=== PATIENT | female | born 1995 | race Hispanic/Latino ===

== ENCOUNTER 2017-11-07 22:08 | Inpatient (IN) | payer MEDICAID, OTHER ==
[2017-11-07] MEDS ORDERED: Sodium Chloride 0.9% 1,000 ML IV STA (22:33)
--- NOTE | 2017-11-07 22:40 | ED PDOC ---
Arrival/HPI - General Historian: Patient - History of Present Illness Time/Duration: > month Symptom Course: Worsening Quality: Other (weakness "like I'm going to fall") <Angie Berry - Last Filed: 11/08/17 00:09> <Frederick Roland DO - Last Filed: 11/08/17 04:21> - General Chief Complaint: Weakness/Neurological Deficit Time Seen by Provider: 11/07/17 22:16 - History of Present Illness Narrative History of Present Illness (Text): CC: Anxiety/weakness Patient [place] [facility] [place] and weakness. Patient states she feels like she's going to fall. Patient states she hasn't eaten well since going [place] [facility] [place] She felt that they didn't treat her well, and she came here for evaluation. Patient's girlfriend and girlfriend's mother were present during the questioning. Patient has been suffering from anxiety that is "crippling" for a long time and has not found a good way to deal with it. Patient states she hasn't eaten well for awhile. Patient's girlfriend's mother says she has to check in on her to make sure she eats at times, but this is the thinnest the patient has ever been. PMH: none PSH: none Social history: Patient moved [place] in August [place]. Allergies: NKDA (Angie Berry) Past Medical History - Psychiatric Hx Substance Use: No <Angie Berry - Last Filed: 11/08/17 00:09> - Provider Review Nursing Documentation Reviewed: Yes <Frederick Roland DO - Last Filed: 11/08/17 04:21> Family/Social History Smoking Status: Never Smoked Hx Alcohol Use: No Hx Substance Use: No <Anige Berry - Last Filed: 11/08/17 00:09> - Physician Review Nursing Documentation Reviewed: Yes Family/Social History: No Known Family HX <Frederick Roland DO - Last Filed: 11/08/17 04:21> Allergies/Home Meds <Angie Berry - Last Filed: 11/08/17 00:09> <Frederick Roland DO - Last Filed: 11/08/17 04:21> Allergies/Adverse Reactions: Allergies No Known Allergies Allergy (Verified 11/08/17 03:13) Home Medications: Home Meds Medication Instructions Recorded Confirmed No Known Home Med 11/07/17 11/08/17 Review of Systems - Review of Systems Constitutional: Fatigue Eyes: absent: Vision Changes, Photophobia, Eye Pain ENT: absent: Hearing Changes, Tinnitus, Rhinorrhea Respiratory: absent: SOB, Cough, Sputum, Wheezing Cardiovascular: absent: Chest Pain, Edema, Calf Pain, Syncope Gastrointestinal: absent: Abdominal Pain, Stool Changes, Constipation, Vomiting , Appetite Changes, Hematochezia, Food Intolerance Genitourinary Female: absent: Dysuria, Frequency, Hematuria, Vaginal Bleeding, Vaginal Discharge Musculoskeletal: absent: Arthralgias, Back Pain, Neck Pain Skin: absent: Rash, Pruritis, Skin Lesions Neurological: absent: Headache, Dizziness, Focal Weakness Endocrine: absent: Diaphoresis, Polyuria, Polydipsia Hemo/Lymphatic: absent: Adenopathy, Easy Bleeding, Easy Bruising Psychiatric: absent: Anxiety, Depression, Suicidal Ideation <KristiAngie - Last Filed: 11/08/17 00:09> Physical Exam Vital Signs Reviewed: Yes Temperature: Afebrile Blood Pressure: Normal Pulse: Regular Respiratory Rate: Normal Appearance: Positive for: Other (emaciated) Mental Status: Positive for: Alert and Oriented X 3 - Systems Exam Head: Present: Atraumatic, Normocephalic Pupils: Present: PERRL Extroacular Muscles: Present: EOMI Conjunctiva: Present: Normal. No: Injected, Icteric Mouth: Present: Dry Neck: Present: Normal Range of Motion, Trachea Midline. No: JVD, Lymphadenopathy Respiratory/Chest: Present: Clear to Auscultation, Good Air Exchange. No: Respiratory Distress Cardiovascular: Present: Regular Rate and Rhythm, Normal S1, S2. No: Murmurs Abdomen: No: Distention Upper Extremity: Present: Normal Inspection, Normal ROM, Capillary Refill < 2s Lower Extremity: Present: Normal Inspection, Normal ROM, Capillary Refill < 2 s Skin: Present: Warm, Dry, Pale Psychiatric: Present: Alert, Oriented x 3 <Angie Berry - Last Filed: 11/08/17 00:09> Vital Signs Reviewed: Yes <Frederick Roland DO - Last Filed: 11/08/17 04:21> Vital Signs Pulse Resp BP Pulse Ox 11/08/17 02:00 93 H 21 117/80 98 11/08/17 00:55 90 16 113/71 99 11/07/17 22:24 83 18 126/86 99 Medical Decision Making - Lab Interpretations Interpretation: No clinic. lab abnormalty <KristiAngie - Last Filed: 11/08/17 00:09> <Frederick Roland DO - Last Filed: 11/08/17 04:21> ED Course and Treatment: 11/07/17 23:57 cbc cmp tsh, t3, free t4 psych eval (Angie Berry) 11/08/17 00:19 22 year old female presents to the Emergency department for generalized weakness. In agreement with resident note, which includes further HPI details. Patient was seen and evaluated with resident, came up with plan and treatment together. (Frederick Roland DO) - Lab Interpretations Lab Results: 11/07/17 22:40 11/07/17 22:40 Lab Results 11/07/17 23:20: Urine Opiates Screen Negative, Urine Methadone Screen Negative, Ur Barbiturates Screen Negative, Ur Phencyclidine Scrn Negative, Ur Amphetamines Screen Negative, U Benzodiazepines Scrn Negative, U Oth Cocaine Metabols Negative, U Cannabinoids Screen Negative 11/07/17 23:20: Urine Color Yellow, Urine Appearance Clear, Urine pH 7.0, Ur Specific Maynard 1.020, Urine Protein Trace H, Urine Glucose (UA) Negative, Urine Ketones >=80, Urine Blood Trace-intact H, Urine Nitrate Negative, Urine Bilirubin Negative, Urine Urobilinogen 0.2, Ur Leukocyte Esterase Negative, Urine RBC 0 - 2, Urine WBC 0 - 2, Ur Epithelial Cells 1 - 3, Urine Bacteria Few , Urine Other Mucus 11/07/17 22:40: Free T4 1.58, Total T3 1.19, TSH 3rd Generation 2.69, Alcohol, Quantitative < 10 11/07/17 22:40: Sodium 140, Potassium 3.9, Chloride 104, Carbon Dioxide 22, Anion Gap 18, BUN 17, Creatinine 0.8, Est GFR ( Amer) > 60, Est GFR (Non- Af Amer) > 60, Random Glucose 94, Calcium 10.2, Total Bilirubin 0.9, AST 31, ALT 37, Alkaline Phosphatase 72, Total Protein 8.6 H, Albumin 5.0 H, Globulin 3.6, Albumin/Globulin Ratio 1.4, Amylase 46, Lipase 123 11/07/17 22:40: WBC 8.6, RBC 4.14, Hgb 12.6, Hct 37.4, MCV 90.3, MCH 30.4, MCHC 33.7, RDW 13.2, Plt Count 255, MPV 11.3 H, Gran % 52.0, Lymph % (Auto) 41.9 H, [place] % (Auto) 5.5, Eos % (Auto) 0.4 L, Baso % (Auto) 0.2, Gran # 4.45, Lymph # 3.6 H, [place] # 0.5, Eos # 0.0, Baso # 0.02 11/07/17 22:18: POC Glucose (mg/dL) 70 - Medication Orders Current Medication Orders: Acetaminophen (Tylenol 325mg Tab) 650 mg PO Q4H PRN PRN Reason: Pain, Mild (1-3) Al Hydrox/Mg Hydrox/Simethicone (Maalox Plus 30 Ml) 30 ml PO DAILY PRN PRN Reason: Upset Stomach Magnesium Hydroxide (Milk Of Magnesia) 30 ml PO DAILY PRN PRN Reason: Constipation Discontinued Medications Sodium Chloride (Sodium Chloride 0.9%) 1,000 mls @ 1,000 mls/hr IV .Q1H STA Stop: 11/07/17 23:32 Last Admin: 11/08/17 01:45 Dose: Not Given Non-Admin Reason: Patient Refused <Angie Berry - Last Filed: 11/08/17 00:09> - PA / WOOL SHEARING SUPERVISOR / Resident Statement [place]O has reviewed & agrees with the documentation as recorded. [place]O has examined the patient and agrees with the treatment plan. - Scribe Statement The provider has reviewed the documentation as recorded by the Scribe <Frederick Roland DO - Last Filed: 11/08/17 04:21> - Scribe Statement Nery Geller. All medical record entries made by the Scribe were at my direction and personally dictated by me. I have reviewed the chart and agree that the record accurately reflects my personal performance of the history, physical exam, medical decision making, and the department course for this patient. I have also personally directed, reviewed, and agree with the discharge instructions and disposition. (Frederick Roland DO) Disposition/Present on Arrival - Present on Arrival Any Indicators Present on Arrival: No History of DVT/PE: No History of Uncontrolled Diabetes: No Urinary Catheter: No History of Decub. Ulcer: No History Surgical Site Infection Following: None <Angie Berry - Last Filed: 11/08/17 00:09> - Disposition Have Diagnosis and Disposition been Completed?: Yes Disposition Time: 00:50 <Frederick Roland DO - Last Filed: 11/08/17 04:21> - Disposition Diagnosis: MDD (major depressive disorder) Disposition: HOSPITALIZED Condition: STABLE
[2017-11-07 23:03] LABS: BASO # 0.02 K/mm3 (0.0-2.0); BASO % 0.2 % (0.0-3.0); EOS % 0.4 % (1.5-5.0); GRAN # 4.45 (1.4-6.5); HEMOGLOBIN 12.6 g/dL (12.0-16.0); LYMPH # 3.6 (1.2-3.4); LYMPH % 41.9 % (22.0-35.0); MEAN CELL VOLUME 90.3 fl (80.0-105.0); MEAN CORPUSCULAR HEMOGLOBIN 30.4 pg (25.0-35.0); MEAN CORPUSCULAR HGB CONC 33.7 g/dl (31.0-37.0); MEAN PLATELET VOLUME 11.3 fl (7.0-11.0); MONO # 0.5 (0.1-0.6); MONO % 5.5 % (1.0-6.0); RBC 4.14 10^6/uL (3.5-6.1); RED CELL DISTRIBUTION WIDTH 13.2 % (11.5-14.5); WHITE BLOOD COUNT 8.6 10^3/ul (4.5-11.0)
[2017-11-07 23:13] LABS: ALT/SGPT 37 U/L (7-56); AMYLASE 46 U/L (35-125); AST/SGOT 31 U/L (14-36); BLOOD UREA NITROGEN 17 mg/dL (7-21); CALCIUM 10.2 mg/dL (8.4-10.5); GFR AFRICAN-AMERICAN > 60; GFR NON-AFRICAN AMERICAN > 60; LIPASE 123 U/L (23-300)
[2017-11-07 23:29] LABS: FREE T4 1.58 ng/dL (0.78-2.19)
[2017-11-07 23:33] LABS: ALB/GLOB RATIO 1.4 (1.1-1.8)
[2017-11-07 23:43] LABS: T3 1.19 ng/mL (0.97-1.69)
[2017-11-07 23:53] LABS: URINE BILIRUBIN NEGATIVE (NEGATIVE); URINE BLOOD TRACE-INTACT (NEGATIVE); URINE GLUCOSE (UA) NEGATIVE (NEGATIVE); URINE LEUKOCYTE ESTERASE NEGATIVE Leu/uL (NEGATIVE); URINE NITRATE NEGATIVE (NEGATIVE); URINE PROTEIN TRACE mg/dL (<30 mg/dL); URINE UROBILINOGEN 0.2 E.U./dL (<1 E.U./dL)
[2017-11-07 23:54] LABS: URINE APPEARANCE CLEAR (CLEAR); URINE COLOR YELLOW (YELLOW)
[2017-11-08] LABS: URINE RBC 0 - 2 /hpf (0-2)
[2017-11-08 00:01] LABS: URINE BACTERIA FEW (NEG); URINE WBC 0 - 2 /hpf (0-6)
[2017-11-08 00:15] LABS: BARBITURATES, UR NEGATIVE (NEGATIVE); BENZODIAZEPINES, UR NEGATIVE (NEGATIVE); OPIATES, UR NEGATIVE (NEGATIVE); PHENCYCLIDINE, UR NEGATIVE (NEGATIVE)
[2017-11-08 02:02] VITALS: O2SAT 98
[2017-11-08 03:14] VITALS: BMI 15.6
[2017-11-08] MEDS ORDERED: Magnesium Hydroxide Susp 30 ml UD PO PRN (03:17)
[2017-11-08] MEDS ORDERED: Alum-Mag Hydrox-Simethicone Susp (30 mL) PO PRN (03:17)
--- NOTE | 2017-11-08 04:44 | PCM.BM ---
<Ysabel Mroan - Last Filed: 11/08/17 04:46> Treatment Plan Problems - Problems identified on initial assessmt GENERALIZED ANXIETY Date Initiated: 11/08/17 Time Initiated: 04:00 Assessment reference: NA Status: Active ANOREXIA NERVOSA Date Initiated: 11/08/17 Assessment reference: NA Status: Active DEPRESSION Date Initiated: 11/08/17 Time Initiated: 04:00 Assessment reference: NA Status: Active Treatment assets and liabiliti Patient Assests: adapts well, cooperative, educated, self-reliant, good support system, negotiates basic needs, cognitively intact Patient Liabilities: financial problems, relationship conflicts (VERY POOR APPETITE) - Milieu Protocol Maintain good personal hygiene: every other day Encourage regular showers, every shift Remind patient to perform daily oral care, every shift Assist patient to perform ADL's Maintain personal safety: every shift Educate patient to report safety concerns to staff, every shift Monitor environment for contraband/sharps Medication safety: Monitor for expected outcome, potential side effects: every shift, Assess barriers to learning: every shift, Assess readiness for medication education: every shift Family Contact Family contact: Patient agrees to contact, Other (HER GF..NAME AND ADD IN FACESHEET.. ) Discharge/Continuing Care - Education Needs Education Needs: Patient Medication, Patient Diagnosis/Disease Process, Patient Coping Skills, Patient Community resources, Patient Nutrition, Patient Health Practices/Safety, Patient Aftercare Safety Plan - Discharge Discharge Criteria: Tolerates medication w/o severe side effects, Free of Suicidal thoughts, Free of agitation, Normal sleep pattern, Ability to care for self <Sanam Ordaz A - Last Filed: 11/08/17 16:08> - Diagnosis (1) Panic disorder with agoraphobia Status: Acute Interventions: 11/08/17 16:08 Psychoeducation Psychopharmacology/adjustment of medications as needed/ monitoring possible side effects Evaluate pt on daily basis Discussion of importance of being compliant with medications and follow up appointments Suicide and homicide risk assessment and prevention, coping strategies, safety plan Reduction of symptoms Relaxation techniques and breathing exercises Improve functional status Family involvement Cognitive behavioral therapy as outpatient (2) MDD (major depressive disorder) Status: Acute Interventions: 11/08/17 16:09 Psychoeducation Psychopharmacology/adjustment of medications as needed/ monitoring possible side effects Evaluate pt on daily basis Compliance with medications and follow up appointments Suicide and homicide risk assessment and prevention Relapse prevention Reduction of symptoms Improve functional status Family involvement As outpatient: cognitive behavioral therapy <Sarah Lee - Last Filed: 11/08/17 17:25> Family Contact Family contact name: Farzaneh(significant other) Family contacted how many times per week?: 2
[2017-11-08 08:40] LABS: GLUCOSE,FASTING 100 mg/dL (65-110); HDL CHOLESTEROL 64 mg/dL (29-60)
[2017-11-08 08:50] LABS: LDL CHOLESTEROL 113 mg/dL (0-129)
--- NOTE | 2017-11-08 14:58 | CP.PCM.CON ---
<Kaushik Ruiz - Last Filed: 11/08/17 20:16> History of Present Illness - History of Present Illness History of Present Illness: Kaushik Ruiz PGY1 IM Consult Note Ms. Napoles is a 22 year old female with no medical history with a history of anxiety who presented to ED with anxiety and admitted to psych unit for it. Patient states that she recently moved from [place] and does not have a PMD in [place] and is not currently working here. She states that she would go to the ED if she felt anything abnormal about her that needed medical attention. Denies avoiding any certain types of food, throwing up food, or having any negative views of her body. Patient denies any eating abnormalities, weakness, fainting episodes, hematuria, changes in bowel or urinary habits, chest pain or shortness of breath; she has no medical complaints. 12-ROS was reviewed and is otherwise unremarkable. PMH: none PSH: none Meds: none Allergies: NKDA SHx: denies tobacco, ETOH or drug use stating that her parents are drug users and she avoids drugs because she has seen the consequences; lives with friend in ; not currently working Review of Systems - Review of Systems All systems: reviewed and no additional remarkable complaints except (as per HPI ) Past Patient History - Past Medical History & Family History Past Medical History?: No Past Family History: Reviewed and not pertinent - Past Social History Smoking Status: Never Smoked Alcohol: None Drugs: Denies Home Situation {Lives}: Friends - CARDIAC Hx Cardiac Disorders: No Hx Hypertension: No - PULMONARY Hx Respiratory Disorders: No Hx Tuberculosis: No - NEUROLOGICAL Hx Neurological Disorder: No HX Cerebrovascular Accident: No Hx Seizures: No - HEENT Hx HEENT Problems: No - RENAL Hx Chronic Kidney Disease: No - ENDOCRINE/METABOLIC Hx Endocrine Disorders: No - HEMATOLOGICAL/ONCOLOGICAL Hx Blood Disorders: No Hx Cancer: No Hx Human Immunodeficiency Virus (HIV): No - INTEGUMENTARY Hx Dermatological Problems: No - MUSCULOSKELETAL/RHEUMATOLOGICAL Hx Musculoskeletal Disorders: No - GASTROINTESTINAL Hx Gastrointestinal Disorders: No - GENITOURINARY/GYNECOLOGICAL Hx Genitourinary Disorders: No Hx Sexually Transmitted Disorders: No - PSYCHIATRIC Hx Anxiety: Yes Hx Physical Abuse: No Hx Sexual Abuse: No Hx Substance Use: No - SURGICAL HISTORY Hx Surgeries: No - ANESTHESIA Hx Anesthesia: No Meds Allergies/Adverse Reactions: Allergies Allergy/AdvReac Type Severity Reaction Status Date / Time No Known Allergies Allergy Verified 11/08/17 03:13 - Medications Medications: Current Medications Acetaminophen (Tylenol 325mg Tab) 650 mg PO Q4H PRN PRN Reason: Pain, Mild (1-3) Al Hydrox/Mg Hydrox/Simethicone (Maalox Plus 30 Ml) 30 ml PO DAILY PRN PRN Reason: Upset Stomach Magnesium Hydroxide (Milk Of Magnesia) 30 ml PO DAILY PRN PRN Reason: Constipation Physical Exam - Constitutional Appears: Well, Non-toxic, No Acute Distress Additional comments: thin appearing female - Head Exam Head Exam: ATRAUMATIC, NORMAL INSPECTION - Eye Exam Eye Exam: EOMI, Normal appearance - ENT Exam ENT Exam: Mucous Membranes Moist - Neck Exam Neck exam: Positive for: Normal Inspection - Respiratory Exam Respiratory Exam: Clear to Auscultation Bilateral, NORMAL BREATHING PATTERN. absent: Rales, Rhonchi, Wheezes - Cardiovascular Exam Cardiovascular Exam: RRR, +S1, +S2 - GI/Abdominal Exam GI & Abdominal Exam: Normal Bowel Sounds, Soft. absent: Distended, Tenderness - Extremities Exam Extremities exam: Positive for: full ROM, normal inspection. Negative for: pedal edema Additional comments: multiple tattoos noted on arms - Back Exam Back exam: NORMAL INSPECTION - Neurological Exam Neurological exam: Alert, CN II-XII Intact, Normal Gait, Oriented x3, Reflexes Normal - Psychiatric Exam Psychiatric exam: Anxious, Normal Affect - Skin Skin Exam: Normal Color, Warm Results - Vital Signs Recent Vital Signs: Last Vital Signs Temp 98.6 F 11/08/17 07:00 Pulse 88 11/08/17 07:00 Resp 20 11/08/17 07:00 BP 99/62 L 11/08/17 07:00 Pulse Ox 98 11/08/17 02:00 - Labs Result Diagrams: 11/07/17 22:40 11/07/17 22:40 Labs: Laboratory Results - last 24 hr 11/08/17 11/08/17 08:00 08:00 Fasting Glucose 100 Triglycerides 122 Cholesterol 200 LDL Cholesterol Direct 113 HDL Cholesterol 64 H TSH 3rd Generation 4.22 Assessment & Plan - Assessment and Plan (Free Text) Assessment: 22 year old thin female with no medical history with a psych history of anxiety who presented to ED with anxiety and admitted to psych unit for it. Medical team was consulted for medical clearance. Patient appears anxious but vital signs are all stable, and labs are within normal limits. Patient appears thin, however, BMI is within normal range with no recent weight changes, and patient is not anemic and with normal EKG. Thyroid studies are normal. UDS was negative. Patient states that she is going to go home today and psych unit staff confirmed. Plan: 1. Anxiety - management as per primary psych team 2. Thin body habitus - labs and VS all wnl - encourage complete diet and avoiding stressors - no anemia noted - no metabolite abnormalities noted Patient is medically stable. Will sign off. Patient was seen, examined and discussed with attending, Dr. Amor Ruiz PGY1 Pager # [phone] <Jimbo Chinchilla - Last Filed: 11/09/17 14:27> Meds - Medications Medications: Current Medications Acetaminophen (Tylenol 325mg Tab) 650 mg PO Q4H PRN PRN Reason: Pain, Mild (1-3) Al Hydrox/Mg Hydrox/Simethicone (Maalox Plus 30 Ml) 30 ml PO DAILY PRN PRN Reason: Upset Stomach Alprazolam (Xanax) 0.25 mg PO TID PRN; Protocol PRN Reason: Anxiety Stop: 11/15/17 18:01 Last Admin: 11/09/17 08:25 Dose: 0.25 mg Magnesium Hydroxide (Milk Of Magnesia) 30 ml PO DAILY PRN PRN Reason: Constipation Paroxetine HCl (Paxil) 5 mg PO HS YASH Last Admin: 11/08/17 21:24 Dose: 5 mg Zaleplon (Sonata) 5 mg PO HS PRN PRN Reason: Insomnia Results - Vital Signs Recent Vital Signs: Last Vital Signs Temp 97.2 F L 11/09/17 07:01 Pulse 20 L 11/09/17 07:01 Resp 95 H 11/09/17 07:01 BP 106/70 11/09/17 07:01 Pulse Ox 98 11/08/17 02:00 - Labs Result Diagrams: 11/07/17 22:40 11/07/17 22:40 Labs: Laboratory Results - last 24 hr 11/08/17 08:15 RPR Nonreactive Attending/Attestation - Attestation I have personally seen and examined this patient.: Yes I have fully participated in the care of the patient.: Yes I have reviewed all pertinent clinical information: Yes Notes (Text): 11/09/17 14:25 attending note; Patient seen and examined with resident. Patient is a 22-year-old female admitted to psychiatric floor for extreme anxiety. Currently patient denies any medical issues. Patient is thin looking. Denies any history of anorexia or bulimia. Denies any nausea, vomiting. Tolerating diet well. Labs reviewed. Patient is medically stable. Please reconsult as needed. Thank you for the courtesy of this consultation.
--- NOTE | 2017-11-08 16:52 | PCM.PSYCH ---
Initial Psychiatric Evaluation - Initial Psychiatric Evaluation Type of Admission: Voluntary Legal Status: Capacity (patient has capacity to sign consent for treatment) Chief Complaint (in patient's own words): "this unit makes me feel very anxious" Patient's Reaction to Hospitalization: patient was admitted for evaluation and stabilization of uncontrolled anxiety, patient lost a lot of weight, currently weight 91 pounds, rule out major depressive disorder. History of Present Illness and Precipitating Events: shortly patient is 22 year old female, not known previous psychiatric history, patient denied history of being admitted to the psychiatric inpatient unit or history of suicidal attempts, patient moved from [place] to [place] in August 2017 due to family problems, currently lives with her girlfriend and her mother in [place], patient was brought in for evaluation of uncontrollable anxiety, fear that something wrong with her from the medical standpoint, based on the report patient was not able to function, didn't leave the house for past 3 weeks, was not able to eat for past 3 days, patient lost more than 9 pounds recently, patient required further evaluation and stabilization, medication management, observation. Patient was not able to see psychiatrist in the community, patient's girlfriend and her family were very concerned about patient's safety. Patient was seen today at the treatment team meeting, patient presented with good personal hygiene, very beautiful face, good ADLs. Patient obviously looking malnourished/anorexic patient weight is 92 pounds, patient has anxious appearance but wanted to present better than she actually is. during the interview pt was minimizing all of her symptoms, pt was saying that she does not belong here, pt was giving excused why she came to the hospital. pt said that she feels "relieved after I've got to know that I am okay from medical standpoint", pt said "this unit makes me feel very anxious, I don't want to stay in here, I want to leave". pt said that she was staying in bed because "I had a flue", pt also reported that she was not able to eat because of that, as a result "everything got worse , I did not want to leave the house and feeling very anxious". pt described her panic attacks as a fear that something bad is going to happen to her, pt also reported that at times she could feel that she is chocking. pt reported that she is not depressed, denied thought of harming self or others , denied intent or plan. pt denied v/a/t hallucinations, denied paranoid ideation, but pt was guarded, smiling anxiously. pt denied that she has h/o eating disorder, denied that she restrict food consumption, denied h/o binge eating or purging, pt reported to have an appetite , wants to increase weight. denied any body image issues. denied exercising excessively to lose weight. pt reported that she ate today, but as per staff pt had only two spoon of food. BMI is 15.6. pt denied smoking, denied using drugs, denied alcohol consumption. Medical h/o: denied, but past psychiatric h/o: pt had some counseling at school, but denied Previous psychiatric admissions, denied suicidal attempts in the past. Family history of: Patient denied any family history of mental illness, denied family history of suicidal attempts. 11/07/17 22:40 11/07/17 22:40 Lab Results 11/08/17 08:00: TSH 3rd Generation 4.22 11/08/17 08:00: Fasting Glucose 100, Triglycerides 122, Cholesterol 200, LDL Cholesterol Direct 113, HDL Cholesterol 64 H 11/07/17 23:20: Urine Opiates Screen Negative, Urine Methadone Screen Negative, Ur Barbiturates Screen Negative, Ur Phencyclidine Scrn Negative, Ur Amphetamines Screen Negative, U Benzodiazepines Scrn Negative, U Oth Cocaine Metabols Negative, U Cannabinoids Screen Negative 11/07/17 23:20: Urine Color Yellow, Urine Appearance Clear, Urine pH 7.0, Ur Specific [place] 1.020, Urine Protein Trace H, Urine Glucose (UA) Negative, Urine Ketones >=80, Urine Blood Trace-intact H, Urine Nitrate Negative, Urine Bilirubin Negative, Urine Urobilinogen 0.2, Ur Leukocyte Esterase Negative, Urine RBC 0 - 2, Urine WBC 0 - 2, Ur Epithelial Cells 1 - 3, Urine Bacteria Few , Urine Other Mucus 11/07/17 22:40: Free T4 1.58, Total T3 1.19, TSH 3rd Generation 2.69, Alcohol, Quantitative < 10 11/07/17 22:40: Sodium 140, Potassium 3.9, Chloride 104, Carbon Dioxide 22, Anion Gap 18, BUN 17, Creatinine 0.8, Est GFR ( Amer) > 60, Est GFR (Non- Af Amer) > 60, Random Glucose 94, Calcium 10.2, Total Bilirubin 0.9, AST 31, ALT 37, Alkaline Phosphatase 72, Total Protein 8.6 H, Albumin 5.0 H, Globulin 3.6, Albumin/Globulin Ratio 1.4, Amylase 46, Lipase 123 11/07/17 22:40: WBC 8.6, RBC 4.14, Hgb 12.6, Hct 37.4, MCV 90.3, MCH 30.4, MCHC 33.7, RDW 13.2, Plt Count 255, MPV 11.3 H, Gran % 52.0, Lymph % (Auto) 41.9 H, [place] % (Auto) 5.5, Eos % (Auto) 0.4 L, Baso % (Auto) 0.2, Gran # 4.45, Lymph # 3.6 H, [place] # 0.5, Eos # 0.0, Baso # 0.02 11/07/17 22:18: POC Glucose (mg/dL) 70 Vital Signs Temp Pulse Resp BP Pulse Ox 11/08/17 07:00 98.6 F 88 20 99/62 L 11/08/17 03:22 97.6 F 98 H 20 109/71 11/08/17 02:00 93 H 21 117/80 98 11/08/17 00:55 90 16 113/71 99 11/07/17 22:24 83 18 126/86 99 during the treatment team meeting, patient requested to be discharged, patient did not want to stay in the hospital, patient denied that she wanted to kill herself or others, this remote mortgage underwriter educated patient about benefits of staying in the hospital and complete treatment but patient declined that offer. Later on when patient was signing papers for [employer] and patient' s family was outside patient complained "I'm going to pass out, I feel very anxious". Patient was advised to stay in the hospital, complete the treatment stat dose of Xanax was given. after talking to her family, patient changed her mind, decided to stay in the hospital in order to complete her treatment. Current Medications: Active Medications Generic Name Dose Route Start Last Admin Trade Name Freq PRN Reason Stop Dose Admin Acetaminophen 650 mg 11/08/17 03:17 Tylenol 325mg Tab PO Q4H PRN Pain, Mild (1-3) Al Hydrox/Mg Hydrox/Simethicone 30 ml 11/08/17 03:17 Maalox Plus 30 Ml PO DAILY PRN Upset Stomach Magnesium Hydroxide 30 ml 11/08/17 03:17 Milk Of Magnesia PO DAILY PRN Constipation Past Psychiatric History - Past Psychiatric History Previous Treatment History: None Prior Professional Help: see HPI Prior Psychiatric Treatment: see HPI At what hospital: see HPI Duration: see HPI Nature of Treatment: see HPI Explanation of prior treatment: see HPI History of Abuse: pt denied any abuse History of ETOH/Drug Use: see HPI History of Family Illness: see HPI Pertinent Medical Hx (Current Medical&Sleep Prob, Allergies): Allergies Allergy/AdvReac Type Severity Reaction Status Date / Time No Known Allergies Allergy Verified 11/08/17 03:13 No Known Home Med 11/07/17 Review of Systems - Review of Systems Systems not reviewed;Unavailable: Acuity of Condition - EENT Eyes: As Per HPI Ears: As Per HPI Nose/Mouth/Throat: As Per HPI - Breasts Breasts: As Per HPI - Cardiovascular Cardiovascular: As Per HPI - Respiratory Respiratory: As Per HPI - Gastrointestinal Gastrointestinal: As Per HPI - Genitourinary Genitourinary: As Per HPI - Reproductive: Female Reproductive:Female: As Per HPI - Menstruation Menstruation: As Per HPI - Musculoskeletal Musculoskeletal: As Par HPI - Integumentary Integumentary: As Per HPI - Neurological Neurological: As Per HPI - Psychiatric Psychiatric: As Per HPI - Endocrine Endocrine: As Per HPI - Hematologic/Lymphatic Hematologic: As Per HPI Mental Status Examination - Personal Presentation Personal Presentation: Looks stated age - Affect Affect: Constricted (pt was trying to smile, but appears to be depressed) - Motor Activity Motor Activity: Calm - Reliability in Providing Information Reliability in Providing Information: Fair - Speech Speech: Organized - Mood Mood: Other ("I am fine") - Formal Thought Process Formal Thought Process: No Impairment, Paranoia (but paranoia cannot be excluded ) - Obsessions/Compulsions Obsessions: None Compulsions: None - Cognitive Functions Orientation: Person, Place, Situation, Time Sensorium: Alert Attention/Concentration: Easily distracted Abstract Thinking: As evidence by abstract perception of proverbs Estimate of Intelligence: Average Judgement: Intact, as evidence by: Insight regarding need for hospitalization - Risk Risk: Diminished functioning - Strength & Assets Inventory Strength & Assets Inventory: Intelligence, Family support, Cooperative - Limitations Limitations: Other (pt was not functioning well) DSM 5 DX - DSM 5 DSM 5 Diagnosis: considering the fact pt's BMI is 15.6 this remote mortgage underwriter would thing it is either eating disorder/anorexia or psychotic spectrum disorder (fear of being poisoned) , or MDD with loss of appetite - Recommended/Plan of Treatment Treatment Recommendations and Plan of Treatment: Milieu/structure/supportive therapy Medical consult appreciated, see medical team note for more detailed info SW consultation for discharge plan and social issues dietary consult xanax 0.25mg po tid prn for anxiety paxil 5mg po hs for mdd and anxiety sonata 5mg po hs for insomnia Family involvement Follow up on labs Will monitor closely Pt was educated about risk/benefits and alternatives of medications, coping strategies (safety plan, suicide prevention), relapse prevention, importance of follow up with psychiatrist and therapist, stay away from drugs/alcohol/smoking Projected ELOS: 7days Prognosis: guarded Discharge Plan and Discharge Criteria: Pt will be not depressed or manic, will be more hopeful, will be not psychotic or anxious, will be not having thoughts of harming self or others, will be tolerating medications well, will not have major side effects, will be able to function, will not pose threat to self or others. - Smoking Cessation Smoking Cessation Initiated: No Reason for not providing: pt denied smoking
--- NOTE | 2017-11-09 09:15 | PCM.PYCHPN ---
Psychiatric Progress Note - Psychiatric Progress Note Patient seen today, length of contact: 25 MIN Patient Chief Complaint: "depressed and anxious" Problems Identified/Issues Discussed: I reviewed assessment and recent notes. I met with patient at bedside. She is groomed and well-oriented to month, year, location and circumstances. Reports that she is feeling better and that she slept very well. She admits to symptoms of depression and anxiety however denies any suicidal thoughts. Wants to get better and has been compliant with her medications. Continues to deny any symptoms of an eating disorder despite low BMI, she states "I love food" and wants her nutritional status to be good. We review her medications, dosing, indications and possible side effects today. Staff notes indicate that patient has periods of anxiety on the unit. Attended group and was calm overnight. She has been compliant with medications but needs encouragement. Diagnostic Results: considering the fact pt's BMI is 15.6 this investment underwriter would thing it is either eating disorder/anorexia or psychotic spectrum disorder (fear of being poisoned) , or MDD with loss of appetite Mental Status Examination - Cognitive Function Orientation: Person, Place, Situation, Time Attention: WNL Concentration: WNL Association: WN Fund of Knowledge: [facility] - Mood Mood: Depressed, Anxious, Other ("I am fine") - Affect Affect: Constricted (pt was trying to smile, but appears to be depressed) - Speech Speech: Appropriate - Formal Thought Process Formal Thought Process: No Impairment, Paranoia (but paranoia cannot be excluded ) - Suicidal Ideation Suicidal Ideation: No - Homicidal Ideation Homicidal Ideation: No Goal/Treatment Plan - Goal/Treatment Plan Progress Toward Problem(s) and Goals/Treatment Plan: * c/w current tx and plan * No new weekend labs thus far * Vitals reviewed and noted below: 11/08/17 11/08/17 07:00 16:00 Temperature 98.6 F Pulse Rate 88 115 H Respiratory 20 Rate Blood Pressure 99/62 L 128/90
--- NOTE | 2017-11-09 16:12 | CARD ---
APPROVED REPORT EKG Measurement Heart [id number] <Conclusion> Normal sinus rhythm Septal infarct, age undetermined Abnormal ECG
[2017-11-10 07:47] VITALS: BP 105/66; PULSE 105; RESP 20; TEMP 98.7
--- NOTE | 2017-11-10 09:28 | PCM.PYCHPN ---
Psychiatric Progress Note - Psychiatric Progress Note Patient seen today, length of contact: 25 MIN Patient Chief Complaint: "better" Problems Identified/Issues Discussed: I reviewed recent notes and met with patient at bedside. She is groomed and well-oriented to month, year, location and circumstances. Reports that she is feeling better and that she slept very well. She admits to symptoms of depression and anxiety however denies any suicidal thoughts. She wants to get better and has been compliant with her medications. Denies side effects from Paxil though noted some dizziness, flushing and tingling this morning. Unclear if this is from Paxil. Patient doesn't appear to be in any distress. Staff notes indicate that patient has periods of anxiety on the unit. She has been compliant with medications however she still needs encouragement and reassurances. Attended groups and there were no behavioral issues over the weekend. Patient indicates preference to be discharged soon.. Diagnostic Results: considering the fact pt's BMI is 15.6 this securities underwriter would thing it is either eating disorder/anorexia or psychotic spectrum disorder (fear of being poisoned) , or MDD with loss of appetite Mental Status Examination - Cognitive Function Orientation: Person, Place, Situation, Time Attention: WNL Concentration: WNL Association: WNL Fund of Knowledge: WNL - Mood Mood: Depressed, Anxious, Other (better) - Affect Affect: Constricted (pt was trying to smile, but appears to be depressed) - Speech Speech: Appropriate - Formal Thought Process Formal Thought Process: No Impairment - Suicidal Ideation Suicidal Ideation: No - Homicidal Ideation Homicidal Ideation: No Goal/Treatment Plan - Goal/Treatment Plan Progress Toward Problem(s) and Goals/Treatment Plan: * c/w current tx and plan * No new weekend labs thus far * Vitals reviewed and noted below: 11/10/17 07:46 Temperature 98.7 F Pulse Rate 105 H Respiratory 20 Rate Blood Pressure 105/66
--- NOTE | 2017-11-12 09:49 | PCM.PYCHDC ---
Mental Status Examination - Mental Status Examination Orientation: Person, Place, Situation, Time Memory: Intact Mood: Neutral Affect: Constricted (but reactive) Attention: WNL Concentration: WNL Association: WNL Fund of Knowledge: WNL Formal Thought Process: No Impairment Description of patient's judgement and insight: Pt has improved insight into mental and medical illness, pt was compliant with medications and unit rules and regulations, pt was going to groups, was calm, cooperative, socially appropriate, no behavioral incidents, no agitation, no aggression. Psychotic Thoughts and Behaviors: Pt denied v/a/t hallucinations, denied paranoid ideations, pt does not appear to be psychotic, and thought process is goal directed. Suicidal Ideation: No Current Homicidal Ideation?: No Plan: pt adamantly denied thoughts of harming self or others denied intent or plan. Discharge Summary - Discharge Note Reason for Hospitalization: patient was admitted for evaluation and stabilization of uncontrolled anxiety, patient lost a lot of weight, at the time of admission pt's weight was 91 pounds , r/o MDD, r/o eating disorder. Psychiatric History (includes Medical, Family, Personal Hx): see HPI Laboratory Data: 11/07/17 22:40 11/07/17 22:40 Lab Results 11/08/17 08:15: RPR Nonreactive 11/08/17 08:00: TSH 3rd Generation 4.22 11/08/17 08:00: Fasting Glucose 100, Triglycerides 122, Cholesterol 200, LDL Cholesterol Direct 113, HDL Cholesterol 64 H 11/07/17 23:20: Urine Opiates Screen Negative, Urine Methadone Screen Negative, Ur Barbiturates Screen Negative, Ur Phencyclidine Scrn Negative, Ur Amphetamines Screen Negative, U Benzodiazepines Scrn Negative, U Oth Cocaine Metabols Negative, U Cannabinoids Screen Negative 11/07/17 23:20: Urine Color Yellow, Urine Appearance Clear, Urine pH 7.0, Ur Specific [place] 1.020, Urine Protein Trace H, Urine Glucose (UA) Negative, Urine Ketones >=80, Urine Blood Trace-intact H, Urine Nitrate Negative, Urine Bilirubin Negative, Urine Urobilinogen 0.2, Ur Leukocyte Esterase Negative, Urine RBC 0 - 2, Urine WBC 0 - 2, Ur Epithelial Cells 1 - 3, Urine Bacteria Few , Urine Other Mucus 11/07/17 22:40: Free T4 1.58, Total T3 1.19, TSH 3rd Generation 2.69, Alcohol, Quantitative < 10 11/07/17 22:40: Sodium 140, Potassium 3.9, Chloride 104, Carbon Dioxide 22, Anion Gap 18, BUN 17, Creatinine 0.8, Est GFR ( Amer) > 60, Est GFR (Non- Af Amer) > 60, Random Glucose 94, Calcium 10.2, Total Bilirubin 0.9, AST 31, ALT 37, Alkaline Phosphatase 72, Total Protein 8.6 H, Albumin 5.0 H, Globulin 3.6, Albumin/Globulin Ratio 1.4, Amylase 46, Lipase 123 11/07/17 22:40: WBC 8.6, RBC 4.14, Hgb 12.6, Hct 37.4, MCV 90.3, MCH 30.4, MCHC 33.7, RDW 13.2, Plt Count 255, MPV 11.3 H, Gran % 52.0, Lymph % (Auto) 41.9 H, [place] % (Auto) 5.5, Eos % (Auto) 0.4 L, Baso % (Auto) 0.2, Gran # 4.45, Lymph # 3.6 H, [place] # 0.5, Eos # 0.0, Baso # 0.02 11/07/17 22:18: POC Glucose (mg/dL) 70 Vital Signs Temp Pulse Resp BP Pulse Ox 11/10/17 07:46 98.7 F 105 H 20 105/66 11/09/17 15:00 120/83 11/09/17 07:01 97.2 F L 20 L 95 H 106/70 11/08/17 16:00 115 H 128/90 11/08/17 07:00 98.6 F 88 20 99/62 L 11/08/17 03:22 97.6 F 98 H 20 109/71 11/08/17 02:00 93 H 21 117/80 98 11/08/17 00:55 90 16 113/71 99 11/07/17 22:24 83 18 126/86 99 Consultations:: List each consultation separately and include: 1. Reason for request. 2. Findings. 3. Follow-up Consultations: pt was seen by medical team, no further recommendations please see notes for more detailed information nutritional consult appreciated Summary of Hospital Course include:: 1. Description of specific treatment plan utilized for patients during their course of treatmen. 2. Summarize the time- course for resolution of acute symptoms and/or regressed behaviors. 3. Describe issues identified and worked on during hospitalization. 4. Describe medication utilized. 5. Describe medical problems identified and treated. 6. Reassessment of suicide risk Summary of Hospital Course: shortly patient is 22 year old female, not known previous psychiatric history, patient denied history of being admitted to the psychiatric inpatient unit or history of suicidal attempts, patient moved from [place] to [place] in August 2017 due to family problems, currently lives with her girlfriend and her mother in [place], patient was brought in for evaluation of uncontrollable anxiety, fear that something wrong with her from the medical standpoint, based on the report patient was not able to function, didn't leave the house for past 3 weeks, was not able to eat for past 3 days, patient lost more than 9 pounds recently, patient required further evaluation and stabilization, medication management, observation. Patient was not able to see psychiatrist in the community, patient's girlfriend and her family were very concerned about patient's safety in regards of self isolation, inability to function, losing weight. initially pt was seen at the treatment team meeting, patient presented with good personal hygiene, very beautiful face, good ADLs. Patient obviously looking malnourished/anorexic patient weight is 91 pounds, patient has anxious appearance but wanted to present better than she actually is. during the interview pt was minimizing all of her symptoms, pt was saying that she does not belong to psych inpatient unit, pt was giving excused why she came to the hospital. pt said that she feels "relieved after I've got to know that I am okay from medical standpoint", pt said "this unit makes me feel very anxious, I don't want to stay in here, I want to leave". pt said that she was staying in bed because "I had a flue", pt also reported that she was not able to eat because of that, as a result "everything got worse , I did not want to leave the house and feeling very anxious". pt described her panic attacks as a fear that something bad is going to happen to her, pt also reported that at times she could feel that she is chocking. pt reported that she is not depressed, denied thought of harming self or others , denied intent or plan. pt denied v/a/t hallucinations, denied paranoid ideation, but pt was guarded, smiling anxiously. pt denied that she has h/o eating disorder, denied that she restrict food consumption, denied h/o binge eating or purging, pt reported to have an appetite , wants to increase weight. denied any body image issues. denied exercising excessively to lose weight. pt reported that she ate today, but as per staff pt had only two spoon of food. BMI is 15.6. pt denied smoking, denied using drugs, denied alcohol consumption. Medical h/o: denied, but past psychiatric h/o: pt had some counseling at school, but denied Previous psychiatric admissions, denied suicidal attempts in the past. Family history of: Patient denied any family history of mental illness, denied family history of suicidal attempts. 11/07/17 22:40 11/07/17 22:40 Lab Results 11/08/17 08:00: TSH 3rd Generation 4.22 11/08/17 08:00: Fasting Glucose 100, Triglycerides 122, Cholesterol 200, LDL Cholesterol Direct 113, HDL Cholesterol 64 H 11/07/17 23:20: Urine Opiates Screen Negative, Urine Methadone Screen Negative, Ur Barbiturates Screen Negative, Ur Phencyclidine Scrn Negative, Ur Amphetamines Screen Negative, U Benzodiazepines Scrn Negative, U Oth Cocaine Metabols Negative, U Cannabinoids Screen Negative 11/07/17 23:20: Urine Color Yellow, Urine Appearance Clear, Urine pH 7.0, Ur Specific [place] 1.020, Urine Protein Trace H, Urine Glucose (UA) Negative, Urine Ketones >=80, Urine Blood Trace-intact H, Urine Nitrate Negative, Urine Bilirubin Negative, Urine Urobilinogen 0.2, Ur Leukocyte Esterase Negative, Urine RBC 0 - 2, Urine WBC 0 - 2, Ur Epithelial Cells 1 - 3, Urine Bacteria Few , Urine Other Mucus 11/07/17 22:40: Free T4 1.58, Total T3 1.19, TSH 3rd Generation 2.69, Alcohol, Quantitative < 10 11/07/17 22:40: Sodium 140, Potassium 3.9, Chloride 104, Carbon Dioxide 22, Anion Gap 18, BUN 17, Creatinine 0.8, Est GFR ( Amer) > 60, Est GFR (Non- Af Amer) > 60, Random Glucose 94, Calcium 10.2, Total Bilirubin 0.9, AST 31, ALT 37, Alkaline Phosphatase 72, Total Protein 8.6 H, Albumin 5.0 H, Globulin 3.6, Albumin/Globulin Ratio 1.4, Amylase 46, Lipase 123 11/07/17 22:40: WBC 8.6, RBC 4.14, Hgb 12.6, Hct 37.4, MCV 90.3, MCH 30.4, MCHC 33.7, RDW 13.2, Plt Count 255, MPV 11.3 H, Gran % 52.0, Lymph % (Auto) 41.9 H, [place] % (Auto) 5.5, Eos % (Auto) 0.4 L, Baso % (Auto) 0.2, Gran # 4.45, Lymph # 3.6 H, [place] # 0.5, Eos # 0.0, Baso # 0.02 11/07/17 22:18: POC Glucose (mg/dL) 70 Vital Signs Temp Pulse Resp BP Pulse Ox 11/08/17 07:00 98.6 F 88 20 99/62 L 11/08/17 03:22 97.6 F 98 H 20 109/71 11/08/17 02:00 93 H 21 117/80 98 11/08/17 00:55 90 16 113/71 99 11/07/17 22:24 83 18 126/86 99 during the treatment team meeting, patient requested to be discharged, patient did not want to stay in the hospital, patient denied that she wanted to kill herself or others, this teletypewriter operator educated patient about benefits of staying in the hospital and complete treatment but patient declined that offer. 11/08/17 Later on when patient was signing papers for AGAINST MEDICAL ADVICE and patient's family was outside patient complained "I'm going to pass out, I feel very anxious". Patient was advised to stay in the hospital, complete the treatment stat dose of Xanax was given. after talking to her family, patient changed her mind, decided to stay in the hospital in order to complete her treatment. pt staid in the hospital for the past three days, was compliant with medications was seen by medical team was seen by nutrition worker pt was started on paxil which was slowly titrated to 10mg po hs for depression and anxiety pt gain one pound while was hospitalized, checked by LORETA Andujar yesterday, when pt got to know about it, pt was upset which gives this teletypewriter operator impression that pt most likely has eating disorder as well. pt overall improved, was attending groups, was socializing with others. pt requested to be discharged, pt might benefit from further evaluation and stabilization, but pt requested to be discharged. pt denied thoughts of harming self or others pt does not meet a criteria for involuntary commitment pt willing to be f/u with outpatient psychiatrist. At the time of the discharge pt denied been depressed, denied thoughts of harming self or others, denied psychotic symptoms, appeared mildly anxious, pt is not in imminent danger to self or others, will be following up at outpatient program, information about follow up appointment, time and address provided to the pt, it is patient responsibility to follow up with outpatient clinic, PMD as well as specialists (see SW note for more detailed information). In case pt will need to obtain results of studies pending at discharge pt was provided with contact information of Psychiatric Inpatient unit [phone] as well as Medical Record Department [phone]. pt does not use drugs or smoking pt was provided with prescriptions for all of medications (please see medication reconciliation form) Pt was educated about safety plan in case of worsening of symptoms or in case of suicidal or homicidal ideation call 911 or go to the nearest ER, also was educated to take meds as prescribed and stay away from drugs, pt verbalized understanding. - Diagnosis (1) Panic disorder with agoraphobia Status: Suspected Priority: High (2) MDD (major depressive disorder) Status: Suspected Priority: Medium - Final Diagnosis (DSM 5) Condition upon Discharge: STABLE DSM 5: r/o anorexia r/o eating disorder Disposition: AGAINST MEDICAL ADVICE Follow-up Treatment Plan: At the time of the discharge pt denied been depressed, denied thoughts of harming self or others, denied psychotic symptoms, appeared mildly anxious, pt is not in imminent danger to self or others, will be following up at outpatient program, information about follow up appointment, time and address provided to the pt, it is patient responsibility to follow up with outpatient clinic, PMD as well as specialists (see SW note for more detailed information). In case pt will need to obtain results of studies pending at discharge pt was provided with contact information of Psychiatric Inpatient unit [phone] as well as Medical Record Department [phone]. pt does not use drugs or smoking pt was provided with prescriptions for all of medications (please see medication reconciliation form) Pt was educated about safety plan in case of worsening of symptoms or in case of suicidal or homicidal ideation call 911 or go to the nearest ER, also was educated to take meds as prescribed and stay away from drugs, pt verbalized understanding. Prescriptions/Medication Reconciliation: RX: PARoxetine [Paxil] 10 mg PO HS #14 tab - Smoking Cessation Smoking Cessation Medication prescribed: No Reason for not providing: denies smoking - Antipsychotic Medications Pt discharged on 2 or more routine antipsychotic medications: No
== END 2017-11-11 16:28 | disposition left against medical advice (07) | DRG 881 ==
LOC: ED 22:08 → ERH 11-08 02:09 → PSYC 11-08 02:38
PROVIDERS: ADMIT Psychiatry & Neurology Psychiatry; ATTEND Psychiatry & Neurology Psychiatry
DX: F32.9 Major depressive disorder, single episode, unspecified (principal); E46 Unspecified protein-calorie malnutrition; Z68.1 Body mass index [BMI] 19.9 or less, adult; F50.9 Eating disorder, unspecified; F40.01 Agoraphobia with panic disorder; Z63.9 Problem related to primary support group, unspecified